=== PATIENT | female | born 1980 | race Caucasian/White ===

== ENCOUNTER 2021-03-15 12:34 | Emergency (ER) | payer OTHER ==
[~2021-03-15] VITALS: Ht 167.6 cm; Wt 65.8 kg
[2021-03-15] MEDS ORDERED: PENICILLIN V P500 MG PO (19:04)
== END 2021-03-15 19:15 | disposition home or self-care (01) ==
LOC: ED 12:34
DX: K59.00 Constipation, unspecified (principal); K08.89 Other specified disorders of teeth and supporting structures; F17.200 Nicotine dependence, unspecified, uncomplicated
CPT/HCPCS: 74177; 80053; 81001; 83690; 84703; 85025; 87210; 87491; 87591; 99284-25; A9270; J7030; Q9967